=== PATIENT | female | born 1990 | race African-American/Black ===

== ENCOUNTER 2018-06-21 14:12 | Emergency (ER) | payer OTHER ==
[2018-06-21 14:28] VITALS: BP 129/73; PULSE 72; TEMP 98.6; BMI 25.7
--- NOTE | 2018-06-21 14:31 | PDOC ---
Rapid Medical Evaluation Chief Complaint: Vaginal Sxs Time Seen by Provider: 06/21/18 14:27 Medical Evaluation: Allergies Allergy/AdvReac Type Severity Reaction Status Date / Time No Known Allergies Allergy Verified 06/21/18 14:28 Vital Signs Temp Pulse Resp BP Pulse Ox 98.6 F 72 16 129/73 100 06/21/18 14:26 06/21/18 14:26 06/21/18 14:26 06/21/18 14:26 06/21/18 14:26 06/21/18 14:28 have performed a brief in-person evaluation of this patient. The patient presents with a chief complaint of: dysuria, burning with urination , vaginal discharge with itching. Denies vag bleeding Pertinent physical exam findings: abd soft NT/ND. no CVAT I have ordered the following: UA, UCx. urine GC/CT testing The patient will proceed to the ED for further evaluation. Discharge Disposition - Diagnosis Vaginitis Qualifiers: Chronicity: acute Qualified Code(s): N76.0 - Acute vaginitis - Referrals - Patient Instructions - Post Discharge Activity
[2018-06-21 15:15] LABS: URINE APPEARANCE CLEAR; URINE BILIRUBIN NEGATIVE (<2.0 mg/dL); URINE COLOR LTYELLOW; URINE GLUCOSE (UA) NEGATIVE (NEGATIVE); URINE KETONE NEGATIVE (NEGATIVE); URINE LEUK ESTERASE TRACE (NEGATIVE); URINE NITRITE NEGATIVE (NEGATIVE); URINE PROTEIN NEGATIVE (NEGATIVE)
--- NOTE | 2018-06-21 15:20 | PDOC ---
History of Present Illness - General Chief Complaint: Vaginal Sxs Stated Complaint: VAGINAL PROBLEM Time Seen by Provider: 06/21/18 14:27 History Source: Patient Exam Limitations: No Limitations - History of Present Illness Travel History: No Initial Comments: 06/21/18 15:17 27 yr female with 2 days itching and vaginal discharge white. no abd pain no fever no urinary complaints. Past History - Past Medical History Allergies/Adverse Reactions: Allergies Allergy/AdvReac Type Severity Reaction Status Date / Time No Known Allergies Allergy Verified 06/21/18 14:28 Home Medications: Ambulatory Orders Miconazole Nitrate [Monistat 3] 1 each VG HS #1 kit 06/21/18 - Suicide/Smoking/Psychosocial Hx Smoking Status: No Smoking History: Never smoked Have you smoked in the past 12 months: No Number of Cigarettes Smoked Daily: 0 Information on smoking cessation initiated: No Hx Alcohol Use: No Drug/Substance Use Hx: No Substance Use Type: None Review of Systems - Review of Systems Able to Perform ROS?: Yes Is the patient limited Green[place]ic proficient: No Constitutional: No: Symptoms Reported HEENTM: No: Symptoms Reported Respiratory: No: Symptoms reported Cardiac (ROS): No: Symptoms Reported ABD/GI: No: Symptoms Reported : Yes: Symptoms Reported *Physical Exam - Vital Signs Last Vital Signs Temp Pulse Resp BP Pulse Ox 98.6 F 72 16 129/73 100 06/21/18 14:26 06/21/18 14:26 06/21/18 14:26 06/21/18 14:26 06/21/18 14:26 - Physical Exam General Appearance: Yes: Nourished, Appropriately Dressed HEENT: positive: EOMI, FANTASMA Neck: positive: Supple. negative: Tender Respiratory/Chest: positive: Lungs Clear, Normal Breath Sounds Cardiovascular: positive: Regular Rhythm, Regular Rate Female Pelvic Exam: positive: normal external exam, discharge (white discharge ) . negative: lesions, adnexal tenderness Gastrointestinal/Abdominal: positive: Normal Bowel Sounds, Soft. negative: Tender ED Treatment Course - ADDITIONAL ORDERS Additional order review: Laboratory Results 06/21/18 14:45 Urine HCG, Qual Negative Medical Decision Making - Medical Decision Making 06/21/18 15:17 cc: vaginal itch and discharge for 2 days no abd pain or rectal pain no concern for STD will send cultures will treat for yeast infection *DC/Admit/Observation/Transfer Diagnosis at time of Disposition: Vaginal yeast infection Vaginitis Qualifiers: Chronicity: acute Qualified Code(s): N76.0 - Acute vaginitis - Discharge Dispostion Disposition: HOME Condition at time of disposition: Good - Prescriptions Prescriptions: Miconazole Nitrate [Monistat 3] 1 each VG HS #1 kit - Referrals - Patient Instructions Printed Discharge Instructions: DI for Vaginal Yeast Infection Additional Instructions: 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
[2018-06-21 15:40] LABS: EPI CELLS RARE /HPF (FEW); URINE MUCUS RARE
== END 2018-06-21 15:26 | disposition home or self-care (01) ==
LOC: JERFT 14:12
DX: B37.3 Candidiasis of vulva and vagina (principal); N76.0 Acute vaginitis
CPT/HCPCS: 81003; 81015; 84703; 87070; 87086; 87186; 87205; 99281-25